=== PATIENT | female | born 2000 | race Two or more races ===

== ENCOUNTER 2025-09-05 09:13 | Emergency (ER) | payer MEDICAID ==
[2025-09-05] MEDS: Orphenadrine 60 MG/2 ML Inj IM ONE (09:43)
== END 2025-09-05 10:05 | disposition home or self-care (01) ==
LOC: LB.ED 09:13
DX: S16.1XXA Strain of muscle, fascia and tendon at neck level, initial encounter (principal); X58.XXXA Exposure to other specified factors, initial encounter
CPT/HCPCS: 96372; 99283; A9270-GY; J2360